=== PATIENT | female | born 1950 | race Caucasian/White ===

== ENCOUNTER 2020-01-29 09:46 | Day surgery (SDC) | payer MEDICARE, OTHER ==
[~2020-01-29] VITALS: Ht 162.6 cm; Wt 113.6 kg
[2020-01-29 10:24] LABS: HEMATOCRIT 40.8 % (36.0-48.0); HEMOGLOBIN 13.1 g/dL (12-16); MCH 28.9 pg (26.0-34.0); MCHC 32.1 g/dL (31.0-37.0); MCV 89.9 fL (80.0-100.0); MEAN PLATELET VOLUME 9.1 fL (7.4-10.4); RBC 4.54 10x6/uL (4.00-5.40); RDW 12.6 % (11.5-14.5); WBC 6.6 10x3/uL (4.8-10.8)
[2020-01-29] MEDS ORDERED: LIPITOR20 MG PO (10:45)
[2020-01-29] MEDS ORDERED: CENTRUM SILVER1 EAC3 PO (10:46)
[2020-01-29] MEDS ORDERED: VITAMIN D (10:48)
[2020-01-29] MEDS ORDERED: FOLIC ACID1 MG PO (10:52)
[2020-01-29] MEDS ORDERED: [UNRECOGNIZED DRUG - OTHER] (10:52)
[2020-01-29] MEDS ORDERED: LEXAPRO10 MG PO (10:52)
[2020-01-29] MEDS ORDERED: GEMFIBROZIL600 MG PO (10:53)
[2020-01-29] MEDS ORDERED: MAG 6464 MG (10:55)
[2020-01-29] MEDS ORDERED: IRON 325 MG (10:55)
[2020-01-29] MEDS ORDERED: MIRALAX17 GM PO (10:56)
[2020-01-29] MEDS ORDERED: PROBIOTIC1 EAC1 PO (10:56)
[2020-01-29] MEDS ORDERED: ranitidine (10:57)
[2020-01-29] MEDS ORDERED: AMBIEN10 MG PO (10:58)
[2020-01-29] MEDS ORDERED: CYANOCOBAL1000 MCG/4 SC (10:58)
[2020-01-29 11:13] VITALS: BP 114/34; Ht 162.6 cm; Wt 113.6 kg
--- NOTE | 2020-01-30 07:09 | OP ---
PATIENT NAME: SALUD FIGUEROA MEDICAL RECORD: [id number] :52 LOCATION:[facility] ADMISSION DATE: SURGEON: CHELSEA RUEDA DO DATE OF OPERATION: 01/29/2020 PROCEDURE: EGD with biopsies. INDICATION FOR PROCEDURE: GERD and belching symptoms. SCOPE: Olympus video gastroscope. MEDICATIONS: Propofol 200 mg IV per anesthesia. ESTIMATED BLOOD LOSS: Minimal. COMPLICATIONS: None. FINDINGS: Informed consent was given. The patient was made comfortable with the above medication. After reaching an adequate level of sedation by slow IV push, the patient was placed on her left side. The endoscope was advanced under direct visualization through the mouth to the second portion of the duodenum with ease. The esophagus appeared normal down to the GE junction. At the GE junction, there was evidence of LA class A reflux-induced esophagitis. The endoscope was advanced beyond the GE junction into the stomach and retroflexed to view the cardia where a small sliding hiatal hernia was present. There were a few scattered benign-appearing fundic gland type polyps in the stomach. The fundus and body of the stomach appeared normal but in the antrum and prepyloric regions, there was significant erythema and friability consistent with chronic gastritis. Cold forceps, biopsies were taken from the antrum and incisura to submit for histopathology and to rule out the presence of H. pylori. The endoscope was advanced beyond the pylorus into the duodenum which appeared normal to the second portion. Cold forceps biopsies were taken from the duodenum to submit for histopathology. The endoscope was withdrawn from the patient. The patient tolerated the procedure well and there were no complications. IMPRESSION: 1. LA class A reflux-induced esophagitis. 2. Small sliding hiatal hernia. 3. Benign-appearing fundic gland type gastric polyps. 4. Antral gastritis. PLAN AND RECOMMENDATIONS: 1. Discharge home when recovery parameters are met. 2. Follow up biopsy specimen results. 3. GERD diet and reflux precautions. 4. Hold Pepcid and start omeprazole 40 mg daily. 5. Follow up in GI clinic in approximately 6 weeks. At that time, we can attempt to reduce the dose of the omeprazole down to 20 mg daily. If that does not control symptoms, I would recommend continuing 40 mg dose indefinitely as she is not controlled on Pepcid currently. NTS:[id number] Voice Confirmation ID: [id number] DOCUMENT ID: [id number] OPERATIVE REPORT [id number] HENRY,CHELSEA VERDUZCO DO at 0709 CC: [id number] DICTATION DATE: 01/29/20 1140 AEROSPACE MECHANIC: 01/29/20 2219 [facility] 01/29/20 [place] [id number] [place] [id number]
== END 2020-01-29 12:30 | disposition home or self-care (01) ==
LOC: D.OPS 09:46
PROVIDERS: Anesthesiology; ATTEND Internal Medicine Gastroenterology
DX: K21.9 Gastro-esophageal reflux disease without esophagitis (principal); R14.2 Eructation; K59.09 Other constipation

== ENCOUNTER 2020-10-14 12:19 | Day surgery (SDC) | payer MEDICARE, OTHER ==
[~2020-10-14] VITALS: Ht 162.6 cm; Wt 113.6 kg
[~2020-10-14 12:19] MED LIST: AMBIEN10 MG PO; CENTRUM SILVER1 EAC3 PO; CYANOCOBAL1000 MCG/4 SC; FOLIC ACID1 MG PO; GEMFIBROZIL600 MG PO; IRON 325 MG; LEXAPRO10 MG PO; LIPITOR20 MG PO; MAG 6464 MG; MIRALAX17 GM PO; PROBIOTIC1 EAC1 PO; VITAMIN D; [UNRECOGNIZED DRUG - OTHER]; ranitidine
[2020-10-14 13:21] LABS: BASOPHILS 0.1 % (0-2); EOSINOPHILS 3.3 % (0-7); HEMATOCRIT 41.9 % (36.0-48.0); HEMOGLOBIN 13.4 g/dL (12-16); IMMATURE GRANULOCYTES 0.3 % (0-5); LYMPHOCYTE ABS# 1.48 10x3/uL (1.18-3.74); LYMPHOCYTES 19.5 % (15-50); MCV 87.7 fL (80.0-100.0); MEAN PLATELET VOLUME 9.3 fL (7.4-10.4); NEUTROPHIL ABS# 5.29 10x3/uL (1.56-6.13); NEUTROPHILS 69.8 % (40-80); PLATELET COUNT 257 10x3/uL (130-400); RBC 4.78 10x6/uL (4.00-5.40); WBC 7.6 10x3/uL (4.8-10.8)
[2020-10-14 13:22] LABS: ANION GAP 15.9 mmol/L (8-16); CALCIUM 9.3 mg/dL (8.5-10.1); CARBON DIOXIDE 22.8 mmol/L (21.0-32.0); CREATININE - SERUM 1.4 mg/dL (0.6-1.3); POTASSIUM - SERUM 3.7 mmol/L (3.5-5.1)
[2020-10-14 13:34] VITALS: BP 109/70; Ht 162.6 cm; Wt 113.6 kg
[2020-10-14] MEDS ORDERED: VITAMIN D325 MC1 PO (13:43)
--- NOTE | 2020-10-14 15:18 | NUR ---
DC INSTRUCTIONS GIVEN TO PT. STATES UNDERSTANDING. DC'D IV CATH FULLY INTACT. WILL DC SHORTLY.
--- NOTE | 2020-10-14 15:32 | NUR ---
PT LEFT UNIT VIA WC AT 1529
--- NOTE | 2020-10-16 07:30 | OP ---
PATIENT NAME: SALUD FIGUEROA MEDICAL RECORD: [id number] :52 LOCATION:[facility] ADMISSION DATE: SURGEON: CHELSEA HERNADEZ DO DATE OF OPERATION: 10/14/2020 SURGEON: Chelsea Hernadez DO PROCEDURE: Colonoscopy with polypectomy. INDICATION FOR PROCEDURE: History of colon polyps and family history of colon cancer. SCOPE: Olympus video pediatric colonoscope. MEDICATIONS: Propofol 350 mg IV per Anesthesia. WITHDRAWAL TIME: 12 minutes. ESTIMATED BLOOD LOSS: Minimal. COMPLICATIONS: None. FINDINGS: Informed consent was given. The patient was made comfortable with the above medication. After reaching an adequate level of sedation by slow IV push, the patient was placed on the left side. A digital rectal examination was performed and was normal. The endoscope was then advanced under direct visualization through the rectum to the cecum, confirmed by the presence of the appendiceal orifice and ileocecal valve. The endoscope was slowly withdrawn, and the mucosa was carefully examined. Prep quality was good. There was a single benign appearing flat polyp located in the ascending colon, which measured approximately 9 mm in diameter. It was removed using endoscopic mucosal resection technique utilizing an injection of saline followed by hot snare polypectomy. There were no other polyps visualized on today's examination. No diverticula were seen. There were one or two scars present in the ascending colon with no sequela of abnormalities. Retroflexion was performed in the rectum with visualization of a normal appearing rectal wall. The endoscope was withdrawn from the patient. The patient tolerated the procedure well and there were no complications. IMPRESSION: 1. Single benign appearing flat polyp located in the ascending colon, status post endoscopic mucosal resection. 2. Otherwise, normal colonoscopy to cecum. PLAN AND RECOMMENDATIONS: 1. Discharge home when recovery parameters are met. 2. Follow up biopsy specimen results. 3. High fiber diet. 4. Continue current medications. 5. Recall colonoscopy in 3 years. TRANSINT:[id number] Voice Confirmation ID: [id number] DOCUMENT ID: [id number] OPERATIVE REPORT [id number] SALUD FIGUEROA CHELSEA HERNADEZ DO at 0730 CC: [id number] DICTATION DATE: 10/14/20 1441 ROTOR PILOT: 10/14/202023 [facility] 10/14/20 [place] [id number]
== END 2020-10-14 15:29 | disposition home or self-care (01) ==
LOC: D.OPS 12:19
PROVIDERS: Anesthesiology; ATTEND Internal Medicine Gastroenterology
DX: Z86.010 Personal history of colon polyps (principal); Z80.0 Family history of malignant neoplasm of digestive organs; K63.5 Polyp of colon; K21.9 Gastro-esophageal reflux disease without esophagitis